=== PATIENT | male | born 1955 | race Caucasian/White ===

== ENCOUNTER → 2023-10-24 09:40 | Outpatient (BNVA) | payer MEDICARE, OTHER, SELFPAY | PROVIDERS: PCP Nurse Practitioner Family; Visit Provider Nurse Practitioner Family | DX: Z13.6 Encounter for screening for cardiovascular disorders (principal); Z12.5 Encounter for screening for malignant neoplasm of prostate; Z12.6 Encounter for screening for malignant neoplasm of bladder; Z76.89 Persons encountering health services in other specified circumstances | CPT/HCPCS: 80053; 80061; 81000; G0103 ==

== ENCOUNTER → 2024-06-29 11:30 | Outpatient (BNVA) | payer MEDICARE, OTHER, SELFPAY | PROVIDERS: PCP Nurse Practitioner Family; Visit Provider Nurse Practitioner Family | DX: M62.81 Muscle weakness (generalized) (principal); W57.XXXA Bitten or stung by nonvenomous insect and other nonvenomous arthropods, initial encounter | CPT/HCPCS: 86160; 86618; 86666; 86668; 86757 ==

== ENCOUNTER → 2024-12-09 08:48 | Outpatient (BNVA) | payer MEDICARE, OTHER, SELFPAY | PROVIDERS: PCP Nurse Practitioner Family; Referring Provider Nurse Practitioner Family; Visit Provider Specialist | DX: M62.81 Muscle weakness (generalized) (principal); E55.9 Vitamin D deficiency, unspecified; G12.1 Other inherited spinal muscular atrophy; G56.21 Lesion of ulnar nerve, right upper limb; Z12.5 Encounter for screening for malignant neoplasm of prostate; M54.50 Low back pain, unspecified; Z13.6 Encounter for screening for cardiovascular disorders; R60.0 Localized edema | CPT/HCPCS: 36415; 80053; 82607; 82652; 84153; 84439; 84443; 85025; 99205 ==

== ENCOUNTER 2024-12-15 11:47 | Outpatient (CLI) | payer MEDICARE, OTHER, SELFPAY ==
--- NOTE | 2024-12-15 12:15 | MR_ITS ---
WS: [id number] MRI LUMBAR SPINE NONCONTRAST TECHNIQUE: Sagittal T1, T2 and STIR imaging. Axial T1 and T2 imaging. 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 FINDINGS: Mild lumbar curve. No acute compression. No high-grade central canal stenosis. Diffuse extensive fatty atrophy of the paraspinal and psoas musculature. L1-L2: Mild annular bulging. Mild facet arthropathy. Spinal canal and foramen are patent. L2-L3: Mild annular bulging. Tiny annular fissure. Moderate facet arthropathy. Spinal canal and foramen are patent. L3-L4: Mild annular bulging. Mild facet arthropathy. Tiny RIGHT foraminal protrusion with mild RIGHT foraminal narrowing. L4-L5: Mild annular bulging. Slight narrowing of the LEFT greater than RIGHT subarticular recess. Moderate facet arthropathy. Spinal canal and foramen are patent. L5-S1: Mild annular bulging. Slight effacement of the ventral thecal sac. Mild facet arthropathy. Spinal canal and foramen are patent. Visualized pelvic bony structures: Normal. Paravertebral soft tissues: Normal. Small LEFT renal cysts. MR/MR lumbar spine wo con* [id number] IMPRESSION: 1. Mild lumbar curve. No acute compression. No high-grade central canal stenos is. 2. Tiny annular fissure at L2-3. 3. Small RIGHT foraminal protrusion L3-4 with slight contact of the exiting RI GHT L3 nerve root. 4. Annular bulge L4-5 with narrowing of the LEFT greater than RIGHT subarticul ar recess. 5. Shallow central protrusion L5-S1 with slight contact of the RIGHT S1 nerve root. 6. Moderate facet arthropathy L3-L4 L4-L5. 7. Diffuse extensive fatty atrophy of the paraspinal and psoas musculature.
== END 2024-12-15 11:48 | disposition home or self-care (01) ==
PROVIDERS: PCP Nurse Practitioner Family; Visit Provider Specialist
DX: G12.1 Other inherited spinal muscular atrophy (principal); M62.81 Muscle weakness (generalized); M43.8X6 Other specified deforming dorsopathies, lumbar region; M51.26 Other intervertebral disc displacement, lumbar region; M51.369 Other intervertebral disc degeneration, lumbar region without mention of lumbar back pain or lower extremity pain; M47.896 Other spondylosis, lumbar region; M62.58 Muscle wasting and atrophy, not elsewhere classified, other site; M48.061 Spinal stenosis, lumbar region without neurogenic claudication; M51.379 Other intervertebral disc degeneration, lumbosacral region without mention of lumbar back pain or lower extremity pain; M47.897 Other spondylosis, lumbosacral region; N28.1 Cyst of kidney, acquired
CPT/HCPCS: 72148

== ENCOUNTER 2024-12-20 05:00 | Outpatient (RCR) | payer MEDICARE, OTHER, SELFPAY | END 2025-01-18 23:59 | disposition home or self-care (01) | LOC: SPT 05:00 | PROVIDERS: PCP Nurse Practitioner Family; Visit Provider Specialist | DX: M62.81 Muscle weakness (generalized) (principal) | CPT/HCPCS: 97110; 97112; 97162 ==

== ENCOUNTER 2025-01-19 06:30 | Outpatient (RCR) | payer MEDICARE, OTHER, SELFPAY | END 2025-02-18 23:59 | disposition home or self-care (01) | LOC: SPT 06:30 | PROVIDERS: PCP Nurse Practitioner Family; Visit Provider Specialist | DX: M62.81 Muscle weakness (generalized) (principal) | CPT/HCPCS: 95911; 97110; 97112; 97140; 97530; 97535 ==

== ENCOUNTER → 2025-02-15 14:11 | Outpatient (BNVA) | payer MEDICARE, OTHER, SELFPAY | PROVIDERS: PCP Nurse Practitioner Family; Visit Provider Specialist | DX: G56.03 Carpal tunnel syndrome, bilateral upper limbs (principal); G56.21 Lesion of ulnar nerve, right upper limb; G12.1 Other inherited spinal muscular atrophy | CPT/HCPCS: 99214 ==

== ENCOUNTER 2025-03-02 06:00 | Outpatient (RCR) | payer MEDICARE, OTHER, SELFPAY | END 2025-03-21 23:59 | disposition home or self-care (01) | LOC: SPT 06:00 | PROVIDERS: PCP Nurse Practitioner Family; Visit Provider Specialist | DX: M62.81 Muscle weakness (generalized) (principal) | CPT/HCPCS: 97110; 97112; 97140; 97164 ==

== ENCOUNTER → 2025-03-10 09:32 | Outpatient (BNVA) | payer MEDICARE, OTHER, SELFPAY | PROVIDERS: PCP Nurse Practitioner Family; Visit Provider Physician Assistant | DX: G56.01 Carpal tunnel syndrome, right upper limb (principal); G56.02 Carpal tunnel syndrome, left upper limb; G56.21 Lesion of ulnar nerve, right upper limb | CPT/HCPCS: 73110; 99203 ==

== ENCOUNTER 2025-03-22 06:30 | Outpatient (RCR) | payer MEDICARE, OTHER, SELFPAY | END 2025-04-20 23:59 | disposition home or self-care (01) | LOC: SPT 06:30 | PROVIDERS: PCP Nurse Practitioner Family; Visit Provider Specialist | DX: M62.81 Muscle weakness (generalized) (principal) | CPT/HCPCS: 97110; 97112; 97530 ==

== ENCOUNTER → 2025-04-28 09:42 | Outpatient (BNVA) | payer MEDICARE, OTHER, SELFPAY | PROVIDERS: PCP Nurse Practitioner Family; Visit Provider Student in an Organized Health Care Education/Training Program | DX: G56.03 Carpal tunnel syndrome, bilateral upper limbs (principal); G56.21 Lesion of ulnar nerve, right upper limb | CPT/HCPCS: 99214 ==

== ENCOUNTER 2025-06-03 05:37 | Day surgery (SDC) | payer MEDICARE, OTHER, SELFPAY ==
[2025-06-03] VITALS (10 sets, daily range): BP systolic 102–135; BP diastolic 57–79; PULSE 68–85; RESP 16–18; TEMP 36.2–36.9; O2SAT 96–99; BMI 20.5
[2025-06-03] MEDS: acetaminophen 1,000 MG/100 ML PIGGYBACK 400 MG IV (06:28)
--- NOTE | 2025-06-03 07:03 | W.PM.OPSFHP ---
Same Day Surgery H&P Indication for Procedure/HPI DATE OF PROCEDURE: June 03, 2025 CHIEF COMPLAINT/INDICATIONFOR SURGICAL PROCEDURE: Right carpal tunnel syndrome, right Guyon canal entrapment, right cubital tunnel syndrome PREOP DIAGNOSIS: Right carpal tunnel syndrome, right Guyon canal entrapment, right cubital t PLANNED PROCEDURE: Operation Date: 06/03/25 07:00 Proposed Procedures p Carpal Tunnel Release(Right) - Kevin Gordon, DO s Guyon Canal Release(Right) - Kevin Tod, DO s Cubital Tunnel Release Ulnar Nerve Decompression(Right) - Kevin Tod, DO Medications/Allergies* Allergies/Adverse Reactions Allergy/AdvReac Type Severity Reaction Status Date / Time No Known Allergies Allergy Verified 04/28/25 09:49 Current Medications: Generic Name Dose Route Start Last Admin Trade Name Freq PRN Reason Stop Dose Admin Sodium Chloride 1,000 mls @ 30 mls/hr 06/03/25 06:00 06/03/25 06:26 Sodium Chloride 0.9% IV 06/04/25 05:59 30 mls/hr .Q24H DEEPAK Administration Pertinent History/Comorbid Conditions* Social History Smoking and tobacco/nicotine status: never used tobacco/nicotine Pertinent Exam Findings alert, oriented x 3, operative site marked and procedure specific exam findings For heart and lungs findings please refer to the preoperative evaluation of anesthesia Please refer to detailed orthopedic examination on 04/28/2025 listed below: RIght upper extremity Exam: Normal C-spine ROM, No pain. Negative Spurling's Negative Tinel's of proximal median nerve- right forearm Positive median compression test at wrist Positive Tinel's over the carpal tunnel bilaterally positive tinels over guyon canal and positive compression test over Guyon's canal ulnar nerve bilateral cubital tunnel has Positive Tinel's severe- right Positive Tinel's mild-left Positive Phalen's bilateral wrist Thenar weakness noted and subtle atrophy appreciated Intrinsic musculature demonstrates severe weakness and severe atrophy noted- right No atrophy noted- left Negative CMC grind test Severe wasting of first webspace on the right side Recommendations Risks and benefits of procedure reviewed and Patient/family agree to proceed Surgery/Procedure today Other Plans: Plan to proceed to the OR today for right carpal tunnel release, right Guyon canal release, right cubital tunnel release with possible nerve transposition. Patient once again understands the ins and outs of the procedure the risk benefits complication alternative surgical nonsurgical treatment options. Understanding his risk for surgery patient elects proceed with surgical intervention all questions answered at this time. Once again he does have severe intrinsic wasting and he understands he has a high likelihood of not achieving a full recovery but at this point in time this is for preservation and hopefully preventing from worsening but allow for chance for some improvement if possible. Patient understands and agrees with current plan. All questions answered. Coding Level of Care Code Acute Code for Chg Fwcha
[2025-06-03] MEDS: ceFAZolin 2,000 MG in sodium chloride 0.9% (plus) 50 ML 100 MG IV (07:06)
--- NOTE | 2025-06-03 07:07 | P.ANESASSM_ITS ---
Pre-Anesthetic Assessment Height/Weight: Height 1.83 m Weight 68.492 kg Temp Pulse Resp BP Pulse Ox O2 Del Method 97.2 F L 85 18 126/79 98 Room Air 06/03/25 05:57 06/03/25 05:57 06/03/25 05:57 06/03/25 05:57 06/03/25 05:57 06/03/25 05:57 Preop Diagnosis: Right carpal tunnel syndrome, right Guyon canal entrapment, right cubital t Operation Date: 06/03/25 07:00 Proposed Procedures p Carpal Tunnel Release(Right) - Kevin Magoffin, DO s Guyon Canal Release(Right) - Kevin Tod, DO s Cubital Tunnel Release Ulnar Nerve Decompression(Right) - Kevin Magoffin, DO Familial anesthetic complications: none Was Beta Sunny taken within 24 hours: N/A Was Clonidine taken within 24 hours: N/A Last intake: Intake Last Liquid Date 06/03/25 Last Liquid Time 05:00 Last Solid Date 06/02/25 Last Solid Time 18:00 Social No alcohol and No tobacco Exam alert, oriented x 3, clear to auscultation bilaterally and regular rate & rhythm Airway Mallampati: Class I Dentition: full Musc/skel spinal muscular atrophy Anesthetic Plan ASA status: 2 Anesthesia: General Other: post op block prn per patient preference Risk of > 500 ml blood loss (7ml/kg in children): No Medications/Allergies Home Medications ?Medication ?Instructions ?Recorded ?Confirmed ?Last Taken ?Type cyclobenzaprine 10 mg tablet 10 mg PO TID PRN muscle s pasm #30 12/16/24 06/02/25 Unknown Rx tabs Allergies Allergy/AdvReac Type Severity Reaction Status Date / Time No Known Allergies Allergy Verified 04/28/25 09:49 Current Medications Generic Name Dose Route Start Last Admin Trade Name Freq PRN Reason Stop Dose Admin Sodium Chloride 1,000 mls @ 30 mls/hr 06/03/25 06:00 06/03/25 06:26 Sodium Chloride 0.9% IV 06/04/25 05:59 30 mls/hr .Q24H DEEPAK Administration PFSH Anesthesia Social History Smoking and tobacco/nicotine status: never used tobacco/nicotine
[2025-06-03] MEDS: lidocaine-epi 1% 20 mL INJ INJECTION (08:16)
[2025-06-03] MEDS: ROPivacaine 0.5% SDV 30 mL 150 MG INJECTION (08:16)
--- NOTE | 2025-06-03 08:50 | W.PM.BPON ---
Date of Procedure: [June 03, 2025] Surgeon: [Dr. Baron DO] [facility] Transplanter(s): [Christian Baron PA-C] Procedure(s) performed: [Right carpal tunnel release right Guyon's canal release right cubital tunnel release. ] Findings of the procedure(s): [Right carpal tunnel syndrome right Guyon's canal entrapment and right cubital tunnel syndrome. Procedure went well and as planned] Estimated blood loss: [10 mL] Specimen(s) removed: [N/A] Post-operative diagnosis: [Right carpal tunnel syndrome right Guyon's canal entrapment and right cubital tunnel syndrome.]
--- NOTE | 2025-06-03 08:54 | PM.PACU ---
PACU note Narrative: Patient is a 69-year-old male just underwent a right carpal tunnel release, right Guyon's canal release and right cubital tunnel release. Patient transferred to PACU in stable condition. Pain is well controlled. Dressing on hand is dry and in place. Patient's fingers are warm and well-perfused. Unable to form any further assessment due to patient still being in under effect of anesthesia.. Exam: unarousable Disposition: discharged
--- NOTE | 2025-06-03 09:12 | PM.OP ---
Operative Report Date of procedure: June 03, 2025 Surgeon: Kevin Baron DO Byproducts Maker: Christian Baron PA-C: PA was necessary for assistance in this case with hand positioning to execute the procedure, retraction and protection of neurovascular structures as well as to assist with wound closure and dressing application. Procedure: Preoperative diagnosis? Right? 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 34 minutes IV fluids: 800mL Complications: None Findings: See operative report narrative Condition: stable Disposition: same day Brief History: Patient's been seen and worked up in the outpatient setting and findings consistent with preoperative diagnosis.? Patient has? Right Carpal Tunnel Syndrome,Right ulnar entrapment at?guyons?canal, Right cubital tunnel syndrome? which has been worked up in the outpatient setting has physical exam findings consistent with this.? Patient's nerve study consistent with this.? Exam findings consistent with preoperative diagnosis.? Patient's failed conservative treatment.? As result through shared decision making agreed to proceed with Right carpal tunnel release , Right ulnar nerve release at the wrist (guyons canal) and Right cubital tunnel release with possible ulnar nerve transposition. We talked about tx options as nonoperative and operative intervention.? Understands risk benefits complication alternatives surgical nonsurgical treatment options.? Understanding? risks pt agrees to proceed with surgical intervention. Understanding these risks pt agrees to proceed with surgery.? Consent obtained in preoperative holding area. Procedure: Patient seen evaluate in the preoperative holding area.? Consent was reviewed and signed with patient.? Correct extremity marked.? Patient seen evaluated by anesthesia department once cleared for surgery was then taken back to the operative suite placed in supine position all bony prominences well-padded patient properly secured to bed.? Right upper extremity placed onto armboard.? Nonsterile tourniquet applied Right upper arm.? Patient then underwent anesthesia per the anesthesia department.? Patient's Right upper extremity was then prepped and draped in standard orthopedic fashion.? Final timeout performed.? Patient received appropriate preoperative antibiotics. Esmarch was used exsanguinate the Right upper extremity.? Tourniquet was insufflated to 250 mmHg. I started with my release of the ulnar nerve at the wrist.? An extensive laterally based palmar incision that extended proximal past the wrist crease with a Ambreen incision was made directly over?Guyon's canal.? At this point in time incision was made between the Pisa form and hamate to follow neurovascular bundle of?Guyon's canal.? sharp scalpel incision was subsequently made through skin and then I switched to Littler dissection scissors.? At this point in time I dissected down over top?guyons?canal release the brevis muscle belly along the hypothenar region to obtain access into?Guyon's canal.? Thick band of fascia was noted proximally just proximal to the wrist crease this was released and made sure there was complete decompression of the ulnar nerve proximally just prior to?Guyon's canal subsequently released?guyon?canal and direct visualization with sharp scalpel excision as well as Littler dissection scissors with care utilizing my research program assistant to protect the neurovascular bundle.? At this point in time I continued to perform release of the fascia/the roof of?Guyon's canal all the way to its most distal extent and the nerve was found to be completely free and untethered.? I then in order to perform release of the deep motor branch I then mobilized my dissection around the ulnar nerve and identified the deep motor branch as it courses towards the underneath fascia connected with the hamate.? I then utilized dissection scissors and under direct visualization completed my release carefully of the fascial bands tethering over top of the deep motor branch.? At this point in time the ulnar nerve was completely decompressed through?Guyon's canal and? ulnar nerve had complete laxity with no areas of entrapment or tethering. No masses were noted within the contents of the?guyons?canal.? This completed the ulnar nerve release at the wrist. Next I then subsequently visualized from the ulnar aspect of the carpal tunnel.? Identified the distal extent as well as proximal extent into the antebrachial fascia.? As result approaching the carpal tunnel from the ulnar position just above the hook of the hamate made an incision through thickened Transverse carpal ligament.? It was noted there was significant entrapment of the median nerve.? I then switched to Littler dissection scissors to complete my dissection and release distally with care to protect neurovascular structures distally.? The tendons were healthy within the carpal tunnel.? No masses were noted.? I then carried my dissection proximally utilizing retraction by my research program assistant as well as direct visualization with loupe magnification identify the proximal extent of the carpal tunnel and release this to its entirety as well as identified the median nerve and released the tethering of the antebrachial fascia proximally past the wrist crease into the distal aspect of the forearm with no further evidence of median nerve entrapment.? The median nerve overall showed signs of compression and inflammation irritation but overall appeared healthy.?? Next marked out the landmarks of the Right elbow of the medial epicondyle and olecranon and made a curvilinear incision following the course of the ulnar nerve at the medial aspect of the elbow.? Sharp scalpel incision was made through skin and subcutaneous tissue.? Next I switched to Littler dissection scissors and spread in plane of the medial antebrachial cutaneous nerve branching which was protected throughout this part of the dissection.? Then I directly came down over the fascia and identified the 2 heads of the FCU fascia and split this Right in the middle and subsequently identified my ulnar nerve distally.? This was then completely released distally under direct visualization and loupe magnification.? Once the nerve was then identified I then subsequently tracked this proximally and released this through Mooney's ligament as well as complete decompression of the nerve proximally all the way past the intermuscular septum.? The nerve was completely released and decompressed both proximally and distally.? Ulnar nerve neurolysis performed and completed both proximally and distally with dissection scissors.? I then took the elbow through range of motion and there was no instability or subluxating of the ulnar nerve.? This completed?cubital?tunnel release.? ?Next the wound bed was thoroughly irrigated.? Tourniquet was deflated.? Hemostasis was satisfactory.? ?The incision was then closed in standard interrupted mattress fashion.? Dressing was Xeroform 4 x 4's ABD Curlex soft roll and an Jair wrap has a bulky soft dressing and volar splint.? Patient was then awakened from anesthesia and taken to PACU in stable condition. Disposition: Patient taken to PACU in stable condition recovering well.? Patient will receive appropriate discharge instructions as well as pain medication postoperatively.? We will follow-up with me in the office in 2 weeks.? Patient understands agrees with current plan.? All questions answered.? pt understands if any questions or concerns and contact the office for follow-up appointment.
--- NOTE | 2025-06-03 10:20 | ANE.PACU2 ---
Inpatient post-anesthesia follow up: Airway intact: Yes Vital signs: Temperature 98.4 F Pulse Rate 72 Respiratory Rate 16 Blood Pressure 133/72 Pulse Oximetry 99 Oxygen Delivery Me thod Room Air Oxygen Flow Rate Fraction of Inspir ed Oxygen Hydration adequate: Yes Nausea and vomiting: No Pain level: 1 Mental status: Baseline
== END 2025-06-03 10:20 | disposition home or self-care (01) ==
PROVIDERS: PCP Nurse Practitioner Family; Visit Provider Student in an Organized Health Care Education/Training Program
PROC: (CPT 64721; principal; 2025-06-03 07:00)
PROC: (CPT 64719; 2025-06-03 07:00)
PROC: (CPT 64718; 2025-06-03 07:00)
DX: G56.01 Carpal tunnel syndrome, right upper limb (principal); G56.21 Lesion of ulnar nerve, right upper limb; G58.8 Other specified mononeuropathies
CPT/HCPCS: 64719; 64718; 64721; J0131; J0690; J1100; J1885; J2704; J2795; J3010; J7030; J9999

== ENCOUNTER → 2025-06-22 08:50 | Outpatient (BNVA) | payer MEDICARE, OTHER, SELFPAY | PROVIDERS: PCP Nurse Practitioner Family; Visit Provider Physician Assistant | DX: Z98.890 Other specified postprocedural states (principal) | CPT/HCPCS: 99024 ==